=== PATIENT | male | born 1990 | race African-American/Black ===

== ENCOUNTER 2022-02-24 18:49 | Inpatient (IN) | payer MEDICAID, OTHER ==
[~2022-02-24] VITALS: Ht 182.9 cm; Wt 101.3 kg
[2022-02-25 00:24] LABS: HEMATOCRIT. 31.8 % (42.0-52.0); HEMOGLOBIN. 10.6 g/dL (14.0-18.0); MEAN CORPUSCULAR HEMOGLOBIN 33.3 pg (28.0-32.0); MEAN CORPUSCULAR VOLUME 100.1 fL (80.0-94.0); MEAN PLATELET VOLUME 9.2 fl (7.4-10.4); PLATELET 280 x1000/uL (130-400); RED BLOOD CELL COUNT 3.18 mill/uL (4.7-6.1); RED CELL DISTRIBUTION WIDTH 15.2 % (11.6-14.6)
[2022-02-25 00:31] LABS: CHLORIDE 104 mEq/L (98-107)
[2022-02-25] MEDS ORDERED: FUROSEMIDE 100MG/10ML VIAL IV NR (01:02)
[2022-02-25] MEDS ORDERED: ALBUTEROL (0.083%) 2.5MG/3ML NEB HHN NR (01:15)
[2022-02-25] MEDS ORDERED: INSULIN REGULAR (HUMULIN R) 300UNITS/3ML VIAL IV NR (01:15)
[2022-02-25] MEDS ORDERED: CALCIUM CHLORIDE 1GM/10ML SYR IV NR (01:15)
[2022-02-25] MEDS ORDERED: DEXTROSE 50% WATER 50ML SYRINGE IV NR (01:15)
[2022-02-25] MEDS ORDERED: SODIUM BICARBONATE 8.4% 1 MEQ/ML 50ML SYR IV NR (01:15)
[2022-02-25 02:34] LABS: PLATELET ESTIMATE NORMAL
[2022-02-25] MEDS ORDERED: ASPIRIN 325MG EC TABLET PO ONE (04:00)
[2022-02-25 08:40] VITALS: BP 156/91
[2022-02-25 09:06] VITALS: BP 156/91
[2022-02-25] MEDS ORDERED: FOLI0.4T6 MT (09:17)
[2022-02-25] MEDS ORDERED: FURO80TA3 PO (09:17)
[2022-02-25] MEDS ORDERED: SEVE800T8 MT (09:17)
[2022-02-25] MEDS ORDERED: FOLI0.8T23 MT (09:17)
[2022-02-25] MEDS ORDERED: AMLO10TA80 PO (09:17)
[2022-02-25] MEDS ORDERED: PANT40TA51 PO (09:17)
[2022-02-25] MEDS ORDERED: COR6 PO (09:17)
[2022-02-25] MEDS ORDERED: LISI20TA31 PO (09:17)
[2022-02-25] MEDS: AMLODIPINE 10MG TABLET PO SCH (10:24)
[2022-02-25] MEDS: CARVEDILOL 6.25 MG TABLET PO SCH ×2 (10:24→21:26)
[2022-02-25] MEDS: FUROSEMIDE 100MG/10ML VIAL IVP SCH (10:24)
[2022-02-25] MEDS ORDERED: DEXTROSE 50% WATER 50ML SYRINGE IV PRN (10:30)
[2022-02-25] MEDS ORDERED: LISINOPRIL 20MG TABLET PO SCH (11:00)
[2022-02-25] MEDS: BLOOD SUGAR DIAGNOSTIC STRIP TEST SCH ×3 (11:33→21:48)
[2022-02-25 12:00] VITALS: BP 153/101
[2022-02-25] MEDS: SEVELAMER CARBONATE 800 MG TABLET PO SCH ×2 (12:04→16:34)
[2022-02-25] MEDS: INSULIN LISPRO 100 UNITS/ML SUBCUT SCH ×3 (12:05→21:30)
[2022-02-25 12:28] LABS: HEPATITIS B SURFACE ANTIGEN NEGATIVE
[2022-02-25 14:12] VITALS: BP 119/78
[2022-02-25 15:32] VITALS: BP 150/98
[2022-02-25 20:00] VITALS: BP 160/93
[2022-02-25] MEDS: PANTOPRAZOLE 40MG DR TABLET PO SCH (21:26)
[2022-02-26] VITALS (7 sets, daily range): BP systolic 129–145; BP diastolic 60–94
[2022-02-26] MEDS: BLOOD SUGAR DIAGNOSTIC STRIP TEST SCH ×4 (07:10→21:34)
[2022-02-26] MEDS: PANTOPRAZOLE 40MG DR TABLET PO SCH ×2 (07:27→21:30)
[2022-02-26] MEDS: INSULIN LISPRO 100 UNITS/ML SUBCUT SCH ×4 (07:40→21:00)
[2022-02-26] MEDS: SEVELAMER CARBONATE 800 MG TABLET PO SCH ×3 (08:17→16:31)
[2022-02-26] MEDS: FUROSEMIDE 100MG/10ML VIAL IVP SCH (08:17)
[2022-02-26] MEDS: AMLODIPINE 10MG TABLET PO SCH (08:17)
[2022-02-26] MEDS: CARVEDILOL 6.25 MG TABLET PO SCH ×2 (08:18→21:31)
[2022-02-26 12:28] LABS: BASOPHILS % 1.2 % (0.0-2.0); EOSINOPHILS % 14.1 % (0.0-5.0); HEMATOCRIT. 28.4 % (42.0-52.0); HEMOGLOBIN. 9.6 g/dL (14.0-18.0); LYMPHOCYTES % 25.5 % (20.0-50.0); MEAN CORPUSCULAR HEMOGLOBIN 33.7 pg (28.0-32.0); MEAN CORPUSCULAR VOLUME 99.7 fL (80.0-94.0); MEAN PLATELET VOLUME 9.6 fl (7.4-10.4); MONOCYTES % 10.2 % (2.0-8.0); PLATELET 239 x1000/uL (130-400); RED BLOOD CELL COUNT 2.84 mill/uL (4.7-6.1); RED CELL DISTRIBUTION WIDTH 15.3 % (11.6-14.6)
[2022-02-27] VITALS (7 sets, daily range): BP systolic 129–161; BP diastolic 81–102
[2022-02-27 06:24] LABS: HEMATOCRIT. 29.8 % (42.0-52.0); MEAN CORPUSCULAR HEMOGLOBIN 33.6 pg (28.0-32.0); MEAN CORPUSCULAR VOLUME 99.9 fL (80.0-94.0); MEAN PLATELET VOLUME 10.2 fl (7.4-10.4); PLATELET 261 x1000/uL (130-400); RED BLOOD CELL COUNT 2.98 mill/uL (4.7-6.1); RED CELL DISTRIBUTION WIDTH 15.3 % (11.6-14.6)
[2022-02-27] MEDS: PANTOPRAZOLE 40MG DR TABLET PO SCH ×2 (06:44→20:10)
[2022-02-27] MEDS: BLOOD SUGAR DIAGNOSTIC STRIP TEST SCH ×4 (06:44→20:09)
[2022-02-27] MEDS: INSULIN LISPRO 100 UNITS/ML SUBCUT SCH ×4 (07:40→20:11)
[2022-02-27] MEDS: FUROSEMIDE 100MG/10ML VIAL IVP SCH (11:11)
[2022-02-27] MEDS: AMLODIPINE 10MG TABLET PO SCH (11:11)
[2022-02-27] MEDS: CARVEDILOL 6.25 MG TABLET PO SCH ×2 (11:11→20:10)
[2022-02-27] MEDS: SEVELAMER CARBONATE 800 MG TABLET PO SCH ×3 (11:12→17:43)
[2022-02-27 13:08] LABS: PLATELET ESTIMATE NORMAL
[2022-02-27] MEDS ORDERED: LACTULOSE 20G/30ML UDC PO PRN (17:15)
[2022-02-27] MEDS: DOCUSATE SODIUM 250MG CAPSULE PO SCH (17:43)
[2022-02-28 04:00] VITALS: BP 124/72
[2022-02-28] MEDS: BLOOD SUGAR DIAGNOSTIC STRIP TEST SCH ×2 (06:14→11:39)
[2022-02-28] MEDS: INSULIN LISPRO 100 UNITS/ML SUBCUT SCH ×2 (06:14→11:51)
[2022-02-28] MEDS: SEVELAMER CARBONATE 800 MG TABLET PO SCH ×2 (06:50→11:48)
[2022-02-28] MEDS: PANTOPRAZOLE 40MG DR TABLET PO SCH (06:50)
[2022-02-28 07:02] LABS: HEMATOCRIT. 33.1 % (42.0-52.0); HEMOGLOBIN. 11.1 g/dL (14.0-18.0); MEAN CORPUSCULAR HEMOGLOBIN 33.4 pg (28.0-32.0); MEAN CORPUSCULAR VOLUME 99.8 fL (80.0-94.0); MEAN PLATELET VOLUME 9.6 fl (7.4-10.4); PLATELET 277 x1000/uL (130-400); RED BLOOD CELL COUNT 3.32 mill/uL (4.7-6.1); RED CELL DISTRIBUTION WIDTH 15.5 % (11.6-14.6)
[2022-02-28 08:00] VITALS: BP 152/95
[2022-02-28] MEDS: AMLODIPINE 10MG TABLET PO SCH (08:11)
[2022-02-28] MEDS: DOCUSATE SODIUM 250MG CAPSULE PO SCH (08:12)
[2022-02-28] MEDS: FUROSEMIDE 100MG/10ML VIAL IVP SCH (08:12)
[2022-02-28] MEDS: CARVEDILOL 6.25 MG TABLET PO SCH (08:12)
[2022-02-28 09:24] LABS: PLATELET ESTIMATE NORMAL
[2022-02-28 12:00] VITALS: BP 125/89
[2022-03-01] MEDS ORDERED: FAMOTIDINE 20MG TABLET PO SCH (09:00)
== END 2022-02-28 14:45 | disposition left against medical advice (07) | DRG 425 ==
LOC: ER 18:49 → 8WST 02-25 04:00 → EDBEDREQ 02-25 04:01 → EDBEDREQTM 02-25 04:01 → ENRESERV 02-25 06:12
PROVIDERS: ADMIT Internal Medicine; ATTEND Internal Medicine
PROC: 5A1D70Z Performance of Urinary Filtration, Intermittent, Less than 6 Hours Per Day (ICD-10-PCS; principal; 2022-02-25)
PROC: 5A1D70Z Performance of Urinary Filtration, Intermittent, Less than 6 Hours Per Day (ICD-10-PCS; 2022-02-26)
PROC: 5A1D70Z Performance of Urinary Filtration, Intermittent, Less than 6 Hours Per Day (ICD-10-PCS; 2022-02-27)
DX: E87.5 Hyperkalemia (principal); I12.0 Hypertensive chronic kidney disease with stage 5 chronic kidney disease or end stage renal disease; D63.1 Anemia in chronic kidney disease; E10.22 Type 1 diabetes mellitus with diabetic chronic kidney disease; N18.6 End stage renal disease; E83.51 Hypocalcemia; Z20.822 Contact with and (suspected) exposure to COVID-19; E87.70 Fluid overload, unspecified; E66.9 Obesity, unspecified; E78.5 Hyperlipidemia, unspecified; Z53.29 Procedure and treatment not carried out because of patient's decision for other reasons; Z60.5 Target of (perceived) adverse discrimination and persecution; Z99.2 Dependence on renal dialysis; Z91.15 Patient's noncompliance with renal dialysis; Z68.30 Body mass index [BMI] 30.0-30.9, adult
CPT/HCPCS: 36415; 71045; 80048; 80053; 82962; 83036; 83735; 83880; 84484; 85025; 86705; 86706; 86709; 86803; 87340; 87426; 93005; 94644; 99285; C1893; J1815; J1940; J3490

== ENCOUNTER 2022-03-30 20:56 | Inpatient (IN) | payer OTHER ==
[~2022-03-30] VITALS: Ht 182.9 cm; Wt 107.5 kg
[~2022-03-30 20:56] MED LIST: AMLO10TA80 PO; COR6 PO; FOLI0.4T6 MT; FOLI0.8T23 MT; FURO80TA3 PO; LISI20TA31 PO; PANT40TA51 PO; SEVE800T8 MT
[2022-03-30 23:21] LABS: BASOPHILS % 1.3 % (0.0-2.0); EOSINOPHILS % 13.3 % (0.0-5.0); HEMATOCRIT. 31.9 % (42.0-52.0); HEMOGLOBIN. 10.7 g/dL (14.0-18.0); LYMPHOCYTES % 25.5 % (20.0-50.0); MEAN CORPUSCULAR HEMOGLOBIN 34.2 pg (28.0-32.0); MEAN CORPUSCULAR VOLUME 102.1 fL (80.0-94.0); MEAN PLATELET VOLUME 9.4 fl (7.4-10.4); MONOCYTES % 11.6 % (2.0-8.0); NEUTROPHILS % 48.3 % (40.0-76.0); PLATELET 271 x1000/uL (130-400); RED BLOOD CELL COUNT 3.12 mill/uL (4.7-6.1); RED CELL DISTRIBUTION WIDTH 15.8 % (11.6-14.6)
[2022-03-30 23:26] LABS: CHLORIDE 103 mEq/L (98-107)
[2022-03-31] MEDS ORDERED: ALBUTEROL (0.083%) 2.5MG/3ML NEB HHN NR (00:45)
[2022-03-31] MEDS ORDERED: DEXTROSE 50% WATER 50ML SYRINGE IV NR (00:45)
[2022-03-31] MEDS ORDERED: SODIUM BICARBONATE 8.4% 1 MEQ/ML 50ML SYR IV NR (00:45)
[2022-03-31] MEDS ORDERED: INSULIN REGULAR (HUMULIN R) 300UNITS/3ML VIAL IV NR (00:45)
[2022-03-31] MEDS ORDERED: ALBUTEROL (0.5%) 2.5MG/0.5ML NEB HHN ONE (00:59)
[2022-03-31] MEDS ORDERED: DEXTROSE 50% WATER 50ML SYRINGE IV ONE (03:00)
[2022-03-31] MEDS ORDERED: ACETAMINOPHEN 325MG TABLET PO PRN (09:00)
[2022-03-31] MEDS ORDERED: ONDANSETRON HCL 4MG/2ML INJ IV PRN (09:00)
[2022-03-31 10:00] VITALS: BP 157/107
[2022-03-31 11:02] VITALS: BP 157/107
[2022-03-31 12:00] VITALS: BP 153/117
[2022-03-31] MEDS ORDERED: DEXTROSE 50% WATER 50ML SYRINGE IV PRN (14:45)
[2022-03-31 16:00] VITALS: BP 130/77
[2022-03-31] MEDS ORDERED: *PATIENT'S OWN MEDICATION STORAGE XX SCH (16:30)
[2022-03-31] MEDS ORDERED: BLOOD SUGAR DIAGNOSTIC STRIP TEST SCH (17:10)
[2022-03-31] MEDS ORDERED: INSULIN LISPRO 100 UNITS/ML SUBCUT SCH (17:40)
[2022-03-31 20:00] VITALS: BP 154/99
[2022-04-01] VITALS: BP 155/98
[2022-04-01 04:00] VITALS: BP 119/65
[2022-04-01 08:00] VITALS: BP 135/78
[2022-04-01 12:00] VITALS: BP 143/92
[2022-04-01 15:11] VITALS: BP 149/102
[2022-04-01] MEDS: AMLODIPINE 10MG TABLET PO SCH (15:15)
[2022-04-01] MEDS ORDERED: SEVELAMER CARBONATE 800 MG TABLET PO SCH (15:30)
[2022-04-01] MEDS: SEVELAMER CARBONATE 800 MG TABLET PO SCH ×2 (15:46→18:05)
[2022-04-01 17:15] LABS: HEPATITIS B SURFACE AB 622.4 mIU/mL
[2022-04-01 17:25] LABS: HEPATITIS B SURFACE ANTIGEN NEGATIVE
[2022-04-01 20:00] VITALS: BP 169/108
[2022-04-01] MEDS ORDERED: CARVEDILOL 6.25 MG TABLET PO SCH (21:00)
[2022-04-01] MEDS: FUROSEMIDE 40MG TABLET PO SCH (22:57)
[2022-04-01] MEDS ORDERED: CARVEDILOL 6.25 MG TABLET PO NR (23:15)
[2022-04-02] VITALS (7 sets, daily range): BP systolic 120–146; BP diastolic 74–98
[2022-04-02] MEDS ORDERED: DEXTROSE 50% WATER 50ML SYRINGE IV PRN (07:15)
[2022-04-02] MEDS: INSULIN LISPRO 100 UNITS/ML SUBCUT SCH ×4 (07:40→21:00)
[2022-04-02] MEDS: BLOOD SUGAR DIAGNOSTIC STRIP TEST SCH ×4 (07:53→20:43)
[2022-04-02] MEDS: PANTOPRAZOLE 40MG DR TABLET PO SCH ×2 (08:12→08:48)
[2022-04-02] MEDS: SEVELAMER CARBONATE 800 MG TABLET PO SCH ×3 (08:45→18:08)
[2022-04-02] MEDS: DOCUSATE SODIUM 250MG CAPSULE PO SCH ×2 (08:47→18:08)
[2022-04-02] MEDS: AMLODIPINE 10MG TABLET PO SCH (08:48)
[2022-04-02] MEDS: CARVEDILOL 12.5MG TABLET PO SCH ×2 (08:48→20:42)
[2022-04-02] MEDS: FUROSEMIDE 40MG TABLET PO SCH ×2 (08:48→20:41)
[2022-04-02] MEDS: LISINOPRIL 20MG TABLET PO SCH ×2 (08:49→20:42)
[2022-04-02] MEDS ORDERED: LISINOPRIL 20MG TABLET PO SCH (09:00)
[2022-04-02] MEDS ORDERED: FOLIC ACID/VITAMIN B COMP W-C TABLET PO SCH (09:00)
[2022-04-02] MEDS ORDERED: LACTULOSE 20G/30ML UDC PO NR (14:00)
[2022-04-02] MEDS: FOLIC ACID 1MG TABLET PO SCH (20:42)
[2022-04-02] MEDS: FOLIC ACID/VITAMIN B COMP W-C TABLET PO SCH (21:54)
[2022-04-03 04:00] VITALS: BP 113/66
[2022-04-03] MEDS: BLOOD SUGAR DIAGNOSTIC STRIP TEST SCH ×4 (05:31→21:44)
[2022-04-03] MEDS: INSULIN LISPRO 100 UNITS/ML SUBCUT SCH ×4 (05:31→21:46)
[2022-04-03 08:00] VITALS: BP 153/105
[2022-04-03] MEDS: FOLIC ACID/VITAMIN B COMP W-C TABLET PO SCH (08:53)
[2022-04-03] MEDS: FOLIC ACID 1MG TABLET PO SCH (08:53)
[2022-04-03] MEDS: SEVELAMER CARBONATE 800 MG TABLET PO SCH ×3 (08:53→17:48)
[2022-04-03] MEDS: FUROSEMIDE 40MG TABLET PO SCH ×2 (08:53→21:44)
[2022-04-03] MEDS: DOCUSATE SODIUM 250MG CAPSULE PO SCH ×2 (08:53→17:48)
[2022-04-03] MEDS: LISINOPRIL 20MG TABLET PO SCH ×2 (08:54→21:48)
[2022-04-03] MEDS: CARVEDILOL 12.5MG TABLET PO SCH ×2 (08:54→21:44)
[2022-04-03] MEDS: AMLODIPINE 10MG TABLET PO SCH (08:54)
[2022-04-03 12:00] VITALS: BP 128/76
[2022-04-03 16:30] VITALS: BP 138/82
[2022-04-03 20:00] VITALS: BP 143/98
[2022-04-04] VITALS (13 sets, daily range): BP systolic 124–148; BP diastolic 79–93
[2022-04-04] MEDS: INSULIN LISPRO 100 UNITS/ML SUBCUT SCH ×4 (05:57→21:07)
[2022-04-04] MEDS: BLOOD SUGAR DIAGNOSTIC STRIP TEST SCH ×4 (05:57→21:03)
[2022-04-04] MEDS: PANTOPRAZOLE 40MG DR TABLET PO SCH (05:57)
[2022-04-04 07:06] LABS: HEMATOCRIT. 26.3 % (42.0-52.0); HEMOGLOBIN. 8.9 g/dL (14.0-18.0); MEAN CORPUSCULAR HEMOGLOBIN 34.2 pg (28.0-32.0); MEAN CORPUSCULAR VOLUME 101.7 fL (80.0-94.0); PLATELET 188 x1000/uL (130-400); RED BLOOD CELL COUNT 2.59 mill/uL (4.7-6.1); RED CELL DISTRIBUTION WIDTH 15.2 % (11.6-14.6)
[2022-04-04] MEDS: SEVELAMER CARBONATE 800 MG TABLET PO SCH ×3 (08:53→17:24)
[2022-04-04] MEDS: FOLIC ACID 1MG TABLET PO SCH (08:53)
[2022-04-04] MEDS: DOCUSATE SODIUM 250MG CAPSULE PO SCH ×2 (08:53→17:24)
[2022-04-04] MEDS: FOLIC ACID/VITAMIN B COMP W-C TABLET PO SCH (08:53)
[2022-04-04] MEDS: AMLODIPINE 10MG TABLET PO SCH (08:54)
[2022-04-04] MEDS: CARVEDILOL 12.5MG TABLET PO SCH ×2 (08:54→21:02)
[2022-04-04] MEDS: LISINOPRIL 20MG TABLET PO SCH ×2 (08:54→21:02)
[2022-04-04] MEDS: FUROSEMIDE 40MG TABLET PO SCH ×2 (08:54→21:02)
[2022-04-04 11:00] LABS: PLATELET ESTIMATE NORMAL
[2022-04-04] MEDS ORDERED: SODIUM POLYSTYRENE SULFONATE 15 G/60 ML BOT PO NR (11:00)
[2022-04-04] MEDS ORDERED: EPOETIN ALFA-EPBX 4,000 UNIT/ML VIAL SUBCUT NR (21:00)
[2022-04-04] MEDS ORDERED: IRON SUCROSE COMPLEX 100 MG/5 ML ML IV SCH (21:00)
[2022-04-05] VITALS (10 sets, daily range): BP systolic 131–162; BP diastolic 76–98
[2022-04-05] MEDS: PANTOPRAZOLE 40MG DR TABLET PO SCH (06:13)
[2022-04-05] MEDS: BLOOD SUGAR DIAGNOSTIC STRIP TEST SCH ×2 (06:18→12:04)
[2022-04-05] MEDS: INSULIN LISPRO 100 UNITS/ML SUBCUT SCH ×2 (06:18→12:04)
[2022-04-05] MEDS: FUROSEMIDE 40MG TABLET PO SCH (08:37)
[2022-04-05] MEDS: SEVELAMER CARBONATE 800 MG TABLET PO SCH ×2 (08:37→12:35)
[2022-04-05] MEDS: DOCUSATE SODIUM 250MG CAPSULE PO SCH (08:37)
[2022-04-05] MEDS: FOLIC ACID/VITAMIN B COMP W-C TABLET PO SCH (08:37)
[2022-04-05] MEDS: FOLIC ACID 1MG TABLET PO SCH (08:38)
[2022-04-05] MEDS: LISINOPRIL 20MG TABLET PO SCH (08:38)
[2022-04-05] MEDS: CARVEDILOL 12.5MG TABLET PO SCH (08:38)
[2022-04-05] MEDS: AMLODIPINE 10MG TABLET PO SCH (08:38)
[2022-04-05 13:11] LABS: QFT MITOGEN VALUE >10.00 IU/mL (.); QFT TB GOLD PLUS Negative (Negative); QFT TB1 AG VALUE 0.03 IU/mL (.)
[2022-04-05] MEDS ORDERED: IRON SUCROSE COMPLEX 100 MG/5 ML ML IV SCH (14:00)
[2022-04-05] MEDS ORDERED: EPOETIN ALFA-EPBX 4,000 UNIT/ML VIAL SUBCUT NR (14:00)
[2022-04-06] MEDS ORDERED: FAMOTIDINE 20MG TABLET PO SCH (09:00)
== END 2022-04-05 14:56 | disposition home or self-care (01) | DRG 425 ==
LOC: ER 20:56 → MICUSO 03-31 02:43 → 8WST 03-31 09:58
PROVIDERS: ADMIT Internal Medicine; ATTEND Internal Medicine
PROC: 5A1D70Z Performance of Urinary Filtration, Intermittent, Less than 6 Hours Per Day (ICD-10-PCS; principal; 2022-04-02)
PROC: 5A1D70Z Performance of Urinary Filtration, Intermittent, Less than 6 Hours Per Day (ICD-10-PCS; 2022-04-04)
DX: E87.5 Hyperkalemia (principal); I12.0 Hypertensive chronic kidney disease with stage 5 chronic kidney disease or end stage renal disease; E11.649 Type 2 diabetes mellitus with hypoglycemia without coma; N18.6 End stage renal disease; D63.1 Anemia in chronic kidney disease; Z20.822 Contact with and (suspected) exposure to COVID-19; E66.9 Obesity, unspecified; E87.70 Fluid overload, unspecified; E11.22 Type 2 diabetes mellitus with diabetic chronic kidney disease; Z99.2 Dependence on renal dialysis; Z68.32 Body mass index [BMI] 32.0-32.9, adult; Z91.013 Allergy to seafood; Z79.899 Other long term (current) drug therapy; Z71.3 Dietary counseling and surveillance
CPT/HCPCS: 36415; 71045; 80048; 80053; 82962; 83036; 84132; 85025; 86480; 86705; 86706; 86709; 86803; 87340; 87426; 90935; 93005; 94640; 99291; J0885; J1815; J3490

== ENCOUNTER 2022-06-06 16:00 | Emergency (ER) | payer OTHER ==
[~2022-06-06] VITALS: Ht 167.6 cm; Wt 101.0 kg
[2022-06-06 16:03] VITALS: BP 129/84
[2022-06-06 20:59] LABS: BASOPHILS % 0.9 % (0.0-2.0); HEMATOCRIT. 29.8 % (42.0-52.0); LYMPHOCYTES % 19.6 % (20.0-50.0); MEAN CORPUSCULAR HEMOGLOBIN 32.7 pg (28.0-32.0); MEAN CORPUSCULAR VOLUME 97.9 fL (80.0-94.0); MEAN PLATELET VOLUME 8.2 fl (7.4-10.4); MONOCYTES % 12.6 % (2.0-8.0); NEUTROPHILS % 56.9 % (40.0-76.0); PLATELET 316 x1000/uL (130-400); RED BLOOD CELL COUNT 3.05 mill/uL (4.7-6.1); RED CELL DISTRIBUTION WIDTH 13.4 % (11.6-14.6)
[2022-06-06 21:06] LABS: CHLORIDE 93 mEq/L (98-107)
== END 2022-06-07 02:42 | disposition home or self-care (01) ==
LOC: ER 16:18
DX: I12.0 Hypertensive chronic kidney disease with stage 5 chronic kidney disease or end stage renal disease (principal); E11.22 Type 2 diabetes mellitus with diabetic chronic kidney disease; N18.6 End stage renal disease; Z99.2 Dependence on renal dialysis
CPT/HCPCS: 36415; 71045; 80053; 83880; 84484; 85025; 93005; 99285

== ENCOUNTER 2022-06-10 18:51 | Inpatient (IN) | payer OTHER ==
[~2022-06-10] VITALS: Ht 182.9 cm; Wt 104.9 kg
[2022-06-10 23:07] LABS: HEMATOCRIT 27.4 % (42.0-52.0); HEMOGLOBIN 9.1 g/dL (14.0-18.0); MEAN CORPUSCULAR HEMOGLOBIN 32.8 pg (28.0-32.0); MEAN CORPUSCULAR VOLUME 98.6 fL (80.0-94.0); PLATELET 305 x1000/uL (130-400); RED BLOOD CELL COUNT 2.78 mill/uL (4.7-6.1); RED CELL DISTRIBUTION WIDTH 13.5 % (11.6-14.6)
[2022-06-10 23:16] LABS: CHLORIDE 98 mEq/L (98-107)
[2022-06-10] MEDS ORDERED: FUROSEMIDE 100MG/10ML VIAL IV STA (23:19)
[2022-06-10] MEDS ORDERED: DEXTROSE 50% WATER 50ML SYRINGE IV ONE (23:30)
[2022-06-10] MEDS ORDERED: SODIUM BICARBONATE 8.4% 1 MEQ/ML 50ML SYR IV ONE (23:30)
[2022-06-10] MEDS ORDERED: CALCIUM CHLORIDE 1GM/10ML SYR IV ONE (23:30)
[2022-06-10] MEDS ORDERED: INSULIN REGULAR (HUMULIN R) 300UNITS/3ML VIAL IV ONE (23:30)
[2022-06-10] MEDS ORDERED: ALBUTEROL (0.083%) 2.5MG/3ML NEB HHN ONE (23:30)
[2022-06-11 10:00] VITALS: BP 126/92
[2022-06-11] MEDS ORDERED: ACETAMINOPHEN 325MG TABLET PO PRN (10:45)
[2022-06-11] MEDS ORDERED: ONDANSETRON HCL 4MG/2ML INJ IV PRN (10:45)
[2022-06-11 12:00] VITALS: BP 117/67
[2022-06-11 16:00] VITALS: BP 131/82
[2022-06-11] MEDS: SEVELAMER CARBONATE 800 MG TABLET PO SCH (19:28)
[2022-06-11 20:00] VITALS: BP 125/82
[2022-06-11 23:25] VITALS: BP 134/81
[2022-06-12] VITALS (10 sets, daily range): BP systolic 114–147; BP diastolic 72–93
[2022-06-12 07:40] LABS: BASOPHILS % 0.7 % (0.0-2.0); EOSINOPHILS % 11.8 % (0.0-5.0); HEMATOCRIT. 24.8 % (42.0-52.0); HEMOGLOBIN. 8.6 g/dL (14.0-18.0); LYMPHOCYTES % 22.4 % (20.0-50.0); MEAN CORPUSCULAR HEMOGLOBIN 33.7 pg (28.0-32.0); MEAN CORPUSCULAR VOLUME 97.2 fL (80.0-94.0); MEAN PLATELET VOLUME 8.9 fl (7.4-10.4); MONOCYTES % 13.5 % (2.0-8.0); NEUTROPHILS % 51.6 % (40.0-76.0); PLATELET 259 x1000/uL (130-400); RED BLOOD CELL COUNT 2.55 mill/uL (4.7-6.1); RED CELL DISTRIBUTION WIDTH 13.3 % (11.6-14.6)
[2022-06-12] MEDS: SEVELAMER CARBONATE 800 MG TABLET PO SCH ×2 (08:39→13:00)
[2022-06-12] MEDS ORDERED: CLONIDINE 0.2MG TABLET PO NR (15:15)
[2022-06-16 00:04] LABS: HEPATITIS B SURFACE ANTIGEN NEGATIVE
== END 2022-06-12 16:30 | disposition home or self-care (01) | DRG 194 ==
LOC: ER 19:12 → 8WST 06-11 00:42
PROVIDERS: ADMIT Internal Medicine; ATTEND Internal Medicine
PROC: 5A1D70Z Performance of Urinary Filtration, Intermittent, Less than 6 Hours Per Day (ICD-10-PCS; principal; 2022-06-11)
DX: I13.2 Hypertensive heart and chronic kidney disease with heart failure and with stage 5 chronic kidney disease, or end stage renal disease (principal); N18.6 End stage renal disease; E11.22 Type 2 diabetes mellitus with diabetic chronic kidney disease; D63.1 Anemia in chronic kidney disease; E87.5 Hyperkalemia; E87.1 Hypo-osmolality and hyponatremia; Z20.822 Contact with and (suspected) exposure to COVID-19; I50.9 Heart failure, unspecified; E83.52 Hypercalcemia; R79.89 Other specified abnormal findings of blood chemistry; Z79.899 Other long term (current) drug therapy; Z99.2 Dependence on renal dialysis; Z91.15 Patient's noncompliance with renal dialysis; Z91.199 Patient's noncompliance with other medical treatment and regimen due to unspecified reason
CPT/HCPCS: 36415; 71045; 80048; 80053; 82962; 84484; 85025; 85027; 86705; 86709; 86803; 87340; 87426; 90935; 94640; 99285; C9803; J1815; J1940; J3490; U0003; U0005

== ENCOUNTER 2024-02-11 08:58 | Inpatient (IN) | payer MEDICAID, OTHER ==
[~2024-02-11] VITALS: Ht 182.9 cm; Wt 94.8 kg
[2024-02-11] VITALS (12 sets, daily range): BP systolic 144–169; BP diastolic 90–100; PULSE 68–82; RESP 16–20; TEMP 36.61404–36.83628; O2SAT 97–99
[2024-02-11 10:54] LABS: BASOPHILS % 0.8 % (0.0-2.0); DIFFERENTIAL COMMENT 0; EOSINOPHILS % 6.4 % (0.0-5.0); HEMATOCRIT. 27.2 % (42.0-52.0); LYMPHOCYTES % 17.4 % (20.0-50.0); MEAN CORPUSCULAR HEMOGLOBIN 33.7 pg (28.0-32.0); MEAN CORPUSCULAR HGB CONC 33.2 g/dL (31.0-37.0); MEAN CORPUSCULAR VOLUME 101.2 fL (80.0-94.0); MEAN PLATELET VOLUME 9.4 fl (7.4-10.4); MONOCYTES % 9.6 % (2.0-8.0); NEUTROPHILS % 65.8 % (40.0-76.0); PLATELET 256 x1000/uL (130-400); RED BLOOD CELL COUNT 2.69 mill/uL (4.7-6.1); RED CELL DISTRIBUTION WIDTH 15.1 % (11.6-14.6); WHITE BLOOD COUNT 7.7 x1000/uL (4.5-11.0)
[2024-02-11 11:04] LABS: INR 1.1; PROTHROMBIN TIME 11.9 sec (9.6-11.0)
[2024-02-11 11:11] LABS: CHLORIDE 101 mEq/L (98-107); SODIUM 134 mEq/L (136-145)
[2024-02-11 11:12] LABS: CALCIUM 7.4 mg/dL (8.7-10.4); CARBON DIOXIDE 15 mEq/L (21-32)
[2024-02-11 11:17] LABS: GLUCOSE 84 mg/dL (70-105); TROPONIN I HIGH SENSITIVITY 41 ng/L (3.0-53)
[2024-02-11 11:19] LABS: ALANINE AMINOTRANSFERASE 26 IU/L (10-49); ALBUMIN 4.4 g/dL (3.2-4.8); BILIRUBIN TOTAL 0.2 mg/dL (0.1-1.0); PROTEIN TOTAL 8.4 g/dL (6.0-8.3)
[2024-02-11 11:22] LABS: ASPARTATE AMINOTRANSFERASE < 8 IU/L (<34)
[2024-02-11 11:29] LABS: CREATININE 20.4 mg/dL (0.6-1.3); UREA NITROGEN BLOOD 145 mg/dL (9-23)
[2024-02-11] MEDS: CALCIUM GLUCONATE 1GM PREMIX 50 ML IV ONE (11:58)
[2024-02-11] MEDS: INSULIN REGULAR (HUMULIN R) 1000UNITS/10ML VIAL IV ONE (12:33)
[2024-02-11] MEDS: DEXTROSE 50% WATER 50ML SYRINGE IV ONE (12:34)
[2024-02-11] MEDS: ALBUTEROL (0.083%) 2.5MG/3ML NEB HHN ONE (13:00)
[2024-02-11] MEDS: MANNITOL 12.5G (25%) VIAL 50ML IV NR (13:05)
[2024-02-11 13:15] LABS: TROPONIN I HIGH SENSITIVITY 39 ng/L (3.0-53)
[2024-02-11] MEDS: SEVELAMER CARBONATE 800 MG TABLET PO SCH (13:30)
[2024-02-11 18:40] LABS: POTASSIUM 4.6 mEq/L (3.5-5.1)
[2024-02-11] MEDS ORDERED: DEXTROSE 50% WATER 50ML SYRINGE IV PRN (21:30)
[2024-02-11] MEDS: ACETAMINOPHEN 325MG TABLET PO PRN (23:12)
[2024-02-12] VITALS (12 sets, daily range): BP systolic 128–175; BP diastolic 65–115; PULSE 70–86; RESP 16–20; TEMP 36.44736–36.78072; O2SAT 98–100
[2024-02-12] MEDS: BLOOD SUGAR DIAGNOSTIC STRIP TEST SCH (06:08)
[2024-02-12 06:32] LABS: POTASSIUM 5.4 mEq/L (3.5-5.1)
[2024-02-12 06:33] LABS: CALCIUM 7.3 mg/dL (8.7-10.4)
[2024-02-12] MEDS: INSULIN LISPRO 100 UNITS/ML SUBCUT SCH (08:10)
[2024-02-12 08:12] LABS: CREATININE 16.7 mg/dL (0.6-1.3)
[2024-02-12 08:14] LABS: PHOSPHORUS 8.6 mg/dL (2.5-4.9)
[2024-02-12 08:16] LABS: HEMATOCRIT. 25.7 % (42.0-52.0); HEMOGLOBIN. 8.4 g/dL (14.0-18.0); MEAN CORPUSCULAR HEMOGLOBIN 33.2 pg (28.0-32.0); MEAN CORPUSCULAR HGB CONC 32.5 g/dL (31.0-37.0); MEAN CORPUSCULAR VOLUME 101.9 fL (80.0-94.0); PLATELET 217 x1000/uL (130-400); RED BLOOD CELL COUNT 2.52 mill/uL (4.7-6.1); RED CELL DISTRIBUTION WIDTH 14.9 % (11.6-14.6); WHITE BLOOD COUNT 5.4 x1000/uL (4.5-11.0)
[2024-02-12 08:48] LABS: DIFFERENTIAL COMMENT 1
[2024-02-12] MEDS ORDERED: FUROSEMIDE 40MG TABLET PO SCH (09:00)
[2024-02-12] MEDS: FERROUS SULFATE 325MG TABLET PO SCH (10:39)
[2024-02-12] MEDS: AMLODIPINE 10MG TABLET PO SCH (10:39)
[2024-02-12] MEDS: CARVEDILOL 6.25 MG TABLET PO SCH (10:40)
[2024-02-12] MEDS: PANTOPRAZOLE 40MG DR TABLET PO SCH (10:40)
[2024-02-12] MEDS: FOLIC ACID/VITAMIN B COMP W-C TABLET PO SCH (10:40)
[2024-02-12] MEDS: CALCIUM ACETATE 667MG CAPSULE PO SCH (15:28)
[2024-02-12 19:18] LABS: HEPATITIS B SURFACE ANTIGEN NEGATIVE (Negative)
[2024-02-12 19:38] LABS: HEPATITIS A AB IGM NEGATIVE (Negative)
[2024-02-12 19:39] LABS: HEPATITIS B CORE AB IGM NEGATIVE (Negative)
[2024-02-12 19:40] LABS: HEPATITIS C AB NON REACTIVE (Neg) (Negative)
[2024-02-12] MEDS: ATORVASTATIN CALCIUM 40MG TABLET PO SCH (21:58)
[2024-02-12 22:17] LABS: ANISOCYTOSIS 1+; HYPOCHROMASIA 1+; PLATELET ESTIMATE NORMAL
[2024-02-13] VITALS: BP 122/69; PULSE 80; RESP 18; TEMP 36.6696; O2SAT 100
[2024-02-13 04:00] VITALS: BP 137/82; PULSE 75; RESP 20; TEMP 36.50292; O2SAT 99
[2024-02-13 06:33] LABS: CALCIUM 7.4 mg/dL (8.7-10.4); POTASSIUM 5.2 mEq/L (3.5-5.1)
[2024-02-13 07:04] LABS: CREATININE 13.3 mg/dL (0.6-1.3)
[2024-02-13 08:00] VITALS: BP 154/99; PULSE 98; RESP 18; TEMP 36.83628; O2SAT 97
[2024-02-13 09:26] LABS: DIFFERENTIAL COMMENT 1; HEMATOCRIT. 27.4 % (42.0-52.0); HEMOGLOBIN. 9.3 g/dL (14.0-18.0); MEAN CORPUSCULAR HGB CONC 33.7 g/dL (31.0-37.0); MEAN CORPUSCULAR VOLUME 100.7 fL (80.0-94.0); MEAN PLATELET VOLUME 10.1 fl (7.4-10.4); PLATELET 237 x1000/uL (130-400); RED BLOOD CELL COUNT 2.72 mill/uL (4.7-6.1); RED CELL DISTRIBUTION WIDTH 14.8 % (11.6-14.6); WHITE BLOOD COUNT 6.2 x1000/uL (4.5-11.0)
[2024-02-13 12:00] VITALS: BP 129/82; PULSE 75; RESP 18; TEMP 36.72516; O2SAT 99
[2024-02-13 14:57] LABS: PLATELET ESTIMATE NORMAL
[2024-02-13 16:00] VITALS: BP 135/80; PULSE 74; RESP 18; TEMP 36.44736; O2SAT 98
[2024-02-13 20:00] VITALS: BP 151/86; PULSE 85; RESP 20; TEMP 37.05852; O2SAT 99
[2024-02-14] VITALS (10 sets, daily range): BP systolic 55–191; BP diastolic 49–102; PULSE 75–87; RESP 18–20; TEMP 36.22512–36.89184; O2SAT 96–99
[2024-02-14 07:07] LABS: HEMATOCRIT. 28.7 % (42.0-52.0); HEMOGLOBIN. 9.5 g/dL (14.0-18.0); MEAN CORPUSCULAR HEMOGLOBIN 33.4 pg (28.0-32.0); MEAN CORPUSCULAR VOLUME 101.2 fL (80.0-94.0); MEAN PLATELET VOLUME 10.1 fl (7.4-10.4); PLATELET 249 x1000/uL (130-400); RED BLOOD CELL COUNT 2.84 mill/uL (4.7-6.1); RED CELL DISTRIBUTION WIDTH 14.9 % (11.6-14.6); WHITE BLOOD COUNT 6.5 x1000/uL (4.5-11.0)
[2024-02-14 07:12] LABS: CALCIUM 7.8 mg/dL (8.7-10.4)
[2024-02-14 07:18] LABS: DIFFERENTIAL COMMENT 1
[2024-02-14 07:22] LABS: CREATININE 14.7 mg/dL (0.6-1.3)
[2024-02-14 10:57] LABS: PLATELET ESTIMATE NORMAL
[2024-02-14] MEDS: CLONIDINE 0.1MG TABLET PO PRN (19:02)
[2024-02-14] MEDS: PANTOPRAZOLE 40MG DR TABLET PO NR (21:04)
[2024-02-15] VITALS: BP 133/74; PULSE 78; RESP 20; TEMP 36.78072; O2SAT 98
[2024-02-15 04:00] VITALS: BP 121/75; PULSE 75; RESP 18; TEMP 36.22512; O2SAT 99
[2024-02-15 08:00] VITALS: BP 129/100; PULSE 78; RESP 20; TEMP 36.61404; O2SAT 97
[2024-02-15 09:24] LABS: POTASSIUM 5.9 mEq/L (3.5-5.1)
[2024-02-15 09:26] LABS: CALCIUM 8.3 mg/dL (8.7-10.4)
[2024-02-15 09:27] LABS: HEMATOCRIT. 31.9 % (42.0-52.0); HEMOGLOBIN. 10.1 g/dL (14.0-18.0); MEAN CORPUSCULAR HEMOGLOBIN 32.2 pg (28.0-32.0); MEAN CORPUSCULAR HGB CONC 31.6 g/dL (31.0-37.0); MEAN CORPUSCULAR VOLUME 102.1 fL (80.0-94.0); MEAN PLATELET VOLUME 9.8 fl (7.4-10.4); PLATELET 307 x1000/uL (130-400); RED BLOOD CELL COUNT 3.13 mill/uL (4.7-6.1); RED CELL DISTRIBUTION WIDTH 14.9 % (11.6-14.6); WHITE BLOOD COUNT 6.9 x1000/uL (4.5-11.0)
[2024-02-15 09:32] LABS: CREATININE 12.5 mg/dL (0.6-1.3)
[2024-02-15 09:38] LABS: DIFFERENTIAL COMMENT 1
[2024-02-15 12:00] VITALS: BP 119/73; PULSE 75; RESP 18; TEMP 36.6696; TEMP 36.66960; O2SAT 97
[2024-02-16 15:28] LABS: PLATELET ESTIMATE NORMAL
[2024-02-18 10:08] LABS: QFT MITOGEN VALUE 0.53 IU/mL (.); QFT TB GOLD PLUS Negative (Negative)
== END 2024-02-15 18:48 | disposition left against medical advice (07) | DRG 425 ==
LOC: ER 09:11 → EDBEDREQ 13:25 → 7WST 20:48
PROVIDERS: ADMIT Internal Medicine; ATTEND Internal Medicine
PROC: 5A1D70Z Performance of Urinary Filtration, Intermittent, Less than 6 Hours Per Day (ICD-10-PCS; principal; 2024-02-11)
PROC: 5A1D70Z Performance of Urinary Filtration, Intermittent, Less than 6 Hours Per Day (ICD-10-PCS; 2024-02-12)
PROC: 5A1D70Z Performance of Urinary Filtration, Intermittent, Less than 6 Hours Per Day (ICD-10-PCS; 2024-02-14)
DX: E87.5 Hyperkalemia (principal); I13.2 Hypertensive heart and chronic kidney disease with heart failure and with stage 5 chronic kidney disease, or end stage renal disease; N18.6 End stage renal disease; E11.22 Type 2 diabetes mellitus with diabetic chronic kidney disease; I16.0 Hypertensive urgency; Z20.822 Contact with and (suspected) exposure to COVID-19; I50.9 Heart failure, unspecified; F17.200 Nicotine dependence, unspecified, uncomplicated; Z99.2 Dependence on renal dialysis; Z91.148 Patient's other noncompliance with medication regimen for other reason; Z59.00 Homelessness unspecified; Z79.899 Other long term (current) drug therapy; Z53.29 Procedure and treatment not carried out because of patient's decision for other reasons
CPT/HCPCS: 36415; 71045; 80048; 80053; 80061; 82962; 83036; 84100; 84132; 84484; 85025; 86480; 86705; 86706; 86709; 87340; 87426; 90935; 93005; 94640; 99291; J0610; J1815; J2150

== ENCOUNTER 2024-11-17 23:37 | Emergency (ER) | payer MEDICAID, OTHER ==
[~2024-11-17] VITALS: Ht 182.9 cm; Wt 106.0 kg
[2024-11-17 23:54] VITALS: O2SAT 100
[2024-11-18] MEDS ORDERED: IBUP-2029 MT (01:13)
[2024-11-18] MEDS ORDERED: CLIN-116 MT (01:13)
[2024-11-18] MEDS: ACETAMINOPHEN 325MG TABLET PO ONE (01:15)
[2024-11-18] MEDS: KETOROLAC 30MG/ML VIAL IM ONE (01:15)
[2024-11-18 01:39] VITALS: BP 130/70; PULSE 94; RESP 18; TEMP 37.6; O2SAT 99
== END 2024-11-18 01:40 | disposition home or self-care (01) ==
LOC: ER 11-18 00:03
DX: K08.89 Other specified disorders of teeth and supporting structures (principal); D17.79 Benign lipomatous neoplasm of other sites; E11.9 Type 2 diabetes mellitus without complications; I10 Essential (primary) hypertension; Z76.0 Encounter for issue of repeat prescription; Z79.899 Other long term (current) drug therapy; Z99.2 Dependence on renal dialysis
CPT/HCPCS: 99283; 96372; J1885

== ENCOUNTER 2024-12-27 22:27 | Emergency (ER) | payer MEDICAID, OTHER ==
[~2024-12-27] VITALS: Ht 182.9 cm; Wt 107.0 kg
[~2024-12-27 22:27] MED LIST changes: +CALC667C PO; +CEPH500C2 MT; +IBUP-2029 MT; +LIDOCAINE HCL
[2024-12-27 22:48] VITALS: O2SAT 100
[2024-12-27 23:09] VITALS: BP 140/86; PULSE 99; RESP 16; TEMP 37.2; O2SAT 98
[2024-12-28] MEDS: KETOROLAC 15MG/ML VIAL IM ONE (01:12)
[2024-12-28] MEDS: LIDOCAINE HCL 1% 20ML VIAL INFIL ONE (01:15)
[2024-12-28] MEDS: TETANUS, DIPHTHERIA, PERTUSSIS VAC/PF 0.5ML (>10YR OLD) IM ONE (01:45)
[2024-12-28] MEDS ORDERED: AMOX1TAB16 MT (04:36)
[2024-12-28] MEDS ORDERED: NAPR-1176 MT (04:37)
[2024-12-28] MEDS ORDERED: SULF1TAB48 MT (04:39)
== END 2024-12-28 05:39 | disposition home or self-care (01) ==
LOC: ER 22:27
DX: L02.811 Cutaneous abscess of head [any part, except face] (principal); K04.7 Periapical abscess without sinus; F12.90 Cannabis use, unspecified, uncomplicated; Z79.1 Long term (current) use of non-steroidal anti-inflammatories (NSAID); Z79.899 Other long term (current) drug therapy
CPT/HCPCS: 10060; 99284; 90715; 90471; 96372; J1885; J2003; Z7610 ×3

== ENCOUNTER 2025-01-15 04:48 | Inpatient (IN) | payer OTHER ==
[~2025-01-15] VITALS: Ht 182.9 cm; Wt 112.9 kg
[2025-01-15] VITALS (16 sets, daily range): BP systolic 100–162; BP diastolic 58–84; PULSE 69–80; RESP 13–20; TEMP 36.114–36.7; O2SAT 97–100
[~2025-01-15 04:48] MED LIST changes: +AMOX1TAB16 MT; +NAPR-1176 MT; +SULF1TAB48 MT
[2025-01-15 05:34] LABS: BASOPHILS % 1.1 % (0.0-2.0); EOSINOPHILS % 11.2 % (0.0-5.0); HEMATOCRIT. 28.3 % (42.0-52.0); HEMOGLOBIN. 9.5 g/dL (14.0-18.0); LYMPHOCYTES % 24.4 % (20.0-50.0); MEAN PLATELET VOLUME 9.1 fl (7.4-10.4); MONOCYTES % 8.7 % (2.0-8.0); NEUTROPHILS % 54.6 % (40.0-76.0); PLATELET 241 x1000/uL (130-400); RED BLOOD CELL COUNT 2.76 mill/uL (4.7-6.1); RED CELL DISTRIBUTION WIDTH 15.4 % (11.6-14.6)
[2025-01-15 05:52] LABS: TROPONIN I HIGH SENSITIVITY 51 ng/L (3.0-53)
[2025-01-15 05:54] LABS: CREATININE 21.1 mg/dL (0.6-1.3); UREA NITROGEN BLOOD 135 mg/dL (9-23)
[2025-01-15] MEDS: ALBUTEROL (0.5%) 2.5MG/0.5ML NEB HHN SCH (06:36)
[2025-01-15] MEDS: INSULIN REGULAR (HUMULIN R) 1000UNITS/10ML VIAL IV SCH (07:04)
[2025-01-15] MEDS: CALCIUM GLUCONATE 100MG/ML 10ML VIAL IV SCH (07:04)
[2025-01-15] MEDS: FUROSEMIDE 40MG/4ML VIAL IV SCH (07:05)
[2025-01-15] MEDS: DEXTROSE 50% WATER 50ML SYRINGE IV SCH (07:05)
[2025-01-15 09:11] LABS: HEPATITIS A AB IGM NEGATIVE (Negative); HEPATITIS B CORE AB IGM NEGATIVE (Negative)
[2025-01-15 09:12] LABS: HEPATITIS C AB NON REACTIVE (Neg) (Negative)
[2025-01-15] MEDS ORDERED: IPRATROPIUM/ALBUTEROL 0.5-3(2.5)MG/3ML NEB HHN PRN (10:15)
[2025-01-15] MEDS ORDERED: CLONIDINE 0.1MG TABLET PO PRN (10:15)
[2025-01-15] MEDS ORDERED: ACETAMINOPHEN 650MG/20.3ML UDC GT PRN (10:15)
[2025-01-15] MEDS: ENOXAPARIN 40MG/0.4ML SYR SUBCUT SCH (10:15)
[2025-01-15] MEDS ORDERED: GUAIFENESIN 200MG/10ML SUGAR FREE UDC PO PRN (10:15)
[2025-01-15] MEDS ORDERED: ONDANSETRON HCL 4MG/2ML INJ IV PRN (10:15)
[2025-01-15] MEDS: ACETAMINOPHEN 650MG/20.3ML UDC GT PRN (10:40)
[2025-01-16] VITALS (14 sets, daily range): BP systolic 128–186; BP diastolic 68–118; PULSE 72–98; RESP 16–18; TEMP 36–37.3; O2SAT 96–100
[2025-01-16] MEDS: DOCUSATE SODIUM 100MG CAPSULE PO PRN (00:26)
[2025-01-16 06:10] LABS: BASOPHILS % 0.8 % (0.0-2.0); EOSINOPHILS % 10.3 % (0.0-5.0); HEMATOCRIT. 27.0 % (42.0-52.0); HEMOGLOBIN. 9.0 g/dL (14.0-18.0); LYMPHOCYTES % 25.7 % (20.0-50.0); MONOCYTES % 9.5 % (2.0-8.0); NEUTROPHILS % 53.7 % (40.0-76.0); RED BLOOD CELL COUNT 2.65 mill/uL (4.7-6.1); RED CELL DISTRIBUTION WIDTH 15.6 % (11.6-14.6)
[2025-01-16 06:21] LABS: TRIGLYCERIDE 54 mg/dL (0-150)
[2025-01-16 06:22] LABS: LDL CHOLESTEROL 72 mg/dL (5-100); PROTEIN TOTAL 6.6 g/dL (6.0-8.3)
[2025-01-16 06:23] LABS: ASPARTATE AMINOTRANSFERASE 12 IU/L (<34)
[2025-01-16 06:24] LABS: BILIRUBIN DIRECT < 0.1 mg/dL (<=3.0); BILIRUBIN TOTAL < 0.2 mg/dL (0.1-1.0); PHOSPHORUS 4.9 mg/dL (2.5-4.9)
[2025-01-16 08:23] LABS: CREATININE 18.0 mg/dL (0.6-1.3); UREA NITROGEN BLOOD 104 mg/dL (9-23)
[2025-01-16 09:19] LABS: PLATELET 191 x1000/uL (130-400)
[2025-01-16] MEDS: SODIUM ZIRCONIUM CYCLOSILICATE 10GM/PACKET PO NR (09:30)
[2025-01-16] MEDS ORDERED: INSULIN REGULAR (HUMULIN R) 1000UNITS/10ML VIAL IV NR (09:30)
[2025-01-16] MEDS ORDERED: CALCIUM CHLORIDE 1GM/10ML SYR IV NR (09:30)
[2025-01-16] MEDS ORDERED: DEXTROSE 50% WATER 50ML SYRINGE IV NR (09:30)
[2025-01-16] MEDS: PANTOPRAZOLE SODIUM 40 MG/VIAL IV SCH (13:47)
[2025-01-16] MEDS: MAGNESIUM/ALUMINUM HYDROXIDE/SIMETHICONE 30ML UDC PO PRN (16:35)
[2025-01-16] MEDS: SEVELAMER CARBONATE 800 MG TABLET PO SCH (16:36)
[2025-01-17] MEDS ORDERED: CARVEDILOL 6.25 MG TABLET PO SCH (09:00)
[2025-01-17] MEDS ORDERED: AMLODIPINE 10MG TABLET PO SCH (09:00)
[2025-01-17] MEDS ORDERED: FOLIC ACID/VITAMIN B COMP W-C TABLET PO SCH (09:00)
== END 2025-01-16 17:15 | disposition left against medical advice (07) | DRG 425 ==
LOC: ER 04:48 → EDBEDREQ 07:45 → EDBEDREQTM 07:45 → 5WST 08:44 → EDBEDREQ 08:45 → ENRESERV 08:46 → 5WST 22:56
PROVIDERS: ADMIT Hospitalist; ATTEND Hospitalist
PROC: 5A1D70Z Performance of Urinary Filtration, Intermittent, Less than 6 Hours Per Day (ICD-10-PCS; principal; 2025-01-15)
PROC: 5A1D70Z Performance of Urinary Filtration, Intermittent, Less than 6 Hours Per Day (ICD-10-PCS; 2025-01-16)
DX: E87.5 Hyperkalemia (principal); I13.11 Hypertensive heart and chronic kidney disease without heart failure, with stage 5 chronic kidney disease, or end stage renal disease; E11.22 Type 2 diabetes mellitus with diabetic chronic kidney disease; E87.70 Fluid overload, unspecified; D53.9 Nutritional anemia, unspecified; Z53.29 Procedure and treatment not carried out because of patient's decision for other reasons; Z99.2 Dependence on renal dialysis; N18.6 End stage renal disease; Z79.899 Other long term (current) drug therapy; Z91.158 Patient's noncompliance with renal dialysis for other reason; Z59.82 Transportation insecurity
CPT/HCPCS: 36415; 71045; 80048; 80061; 80076; 82962; 83735; 83880; 84100; 84443; 84484; 85025; 86705; 86706; 86709; 87340; 90935; 93005; 94070; 94640; 94664; 96374; 96375; 98960; 99291; J0610; J1815; J1938; J2470